=== PATIENT | female | born 1970 | race Caucasian/White ===

== ENCOUNTER 2019-08-07 09:24 | Emergency (ER) | payer BC, MEDICAID ==
[2019-08-07] MEDS ORDERED: cefTRIAXone 1 GM Vial IM ONE (10:08)
--- NOTE | 2019-08-07 10:13 | EDM.PDOC ---
ED HPI GENERAL MEDICAL PROBLEM - General Chief Complaint: General Stated Complaint: shortness of breath and sore throat Time Seen by Provider: 08/07/19 09:30 Source of Information: Reports: Patient History Limitations: Reports: No Limitations - History of Present Illness INITIAL COMMENTS - FREE TEXT/NARRATIVE: Pt with SOB and sore throat Several days getting worse Onset: Gradual Duration: Day(s):, Getting Worse Location: Reports: Face, Chest Associated Symptoms: Reports: Cough throat Pain Score (Numeric/FACES): 8 - Related Data Allergies Allergy/AdvReac Type Severity Reaction Status Date / Time bee venom protein (honey bee) Allergy Anaphylactic Verified 08/07/19 09:30 Shock Home Meds: Home Meds Citalopram Hydrobromide [Celexa] 40 mg PO DAILY 08/07/19 [History] Cyclobenzaprine [Flexeril] 10 mg PO TID PRN 08/07/19 [History] Lisinopril [Zestril] 20 mg PO DAILY 08/07/19 [History] Metoprolol Succinate [Toprol Xl] 25 mg PO DAILY 08/07/19 [History] Multivitamin/Iron/Folic Acid [Centrum Adults Tablet] 1 tab PO DAILY 08/07/19 [ History] Omeprazole Magnesium [Prilosec Otc] 20 mg PO BIDAC 08/07/19 [History] amLODIPine Besylate [Norvasc] 10 mg PO DAILY 08/07/19 [History] traZODone HCl [Trazodone HCl] 50 mg PO BEDTIME 08/07/19 [History] Past Medical History Cardiovascular History: Reports: Hypertension [employer]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: Musculoskeletal History: Reports: Arthritis, Fracture, Other (See Below) Other Musculoskeletal History: RLL fx and shattered ankle, bone spurs Psychiatric History: Reports: Anxiety, Depression - Past Surgical History Female Surgical History: Reports: Section Musculoskeletal Surgical History: Reports: Other (See Below) Other Musculoskeletal Surgeries/Procedures:: vein surgery per pt report Social & Family History - Tobacco Use Smoking Status *Q: Never Smoker - Caffeine Use Caffeine Use: Reports: None - Recreational Drug Use Recreational Drug Use: No ED ROS GENERAL - Review of Systems Review Of Systems: See Below HEENT: Reports: Throat Pain Respiratory: Reports: Shortness of Breath, Cough Cardiovascular: Reports: No Symptoms GI/Abdominal: Reports: No Symptoms ED EXAM, GENERAL - Physical Exam Exam: See Below Exam Limited By: No Limitations Nose: Normal Inspection Throat/Mouth: Other (Erythema posteriorly) Neck: Supple Respiratory/Chest: Decreased Breath Sounds Cardiovascular: Regular Rate, Rhythm Course - Vital Signs Last Recorded V/S: Last Vital Signs Temp 98.9 F 08/07/19 09:25 Pulse 97 08/07/19 09:25 Resp 20 08/07/19 09:25 BP 128/82 08/07/19 09:25 Pulse Ox 100 08/07/19 09:25 - Orders/Labs/Meds Meds: Medications Discontinued Medications Generic Name Dose Route Start Last Admin Trade Name Freq PRN Reason Stop Dose Admin Ceftriaxone Sodium 1 gm 08/07/19 10:08 Rocephin IM 08/07/19 10:09 ONETIME ONE - Re-Assessments/Exams Free Text/Narrative Re-Assessment/Exam: 08/07/19 10:11 Pt given Rocephin 1 gm IM in ER and Rx Amoxicillin 500 mg TID for 10 days Departure - Departure Time of Disposition: 10:30 Disposition: Home, Self-Care 01 Clinical Impression: Strep pharyngitis - Discharge Information *PRESCRIPTION DRUG MONITORING PROGRAM REVIEWED*: Not Applicable *COPY OF PRESCRIPTION DRUG MONITORING REPORT IN PATIENT SANTIAGO: Not Applicable Instructions: Strep Throat Referrals: Rosa Elena Saldana NP [Primary Care Provider] - Forms: ED Department Discharge, ED Return to Work/School Form Sepsis Event Note - Evaluation Sepsis Screening Result: No Definite Risk - Focused Exam Vital Signs: Vital Signs Temp Pulse Resp BP Pulse Ox 08/07/19 09:25 98.9 F 97 20 128/82 100 Date Exam was Performed: 08/07/19 Time Exam was Performed: 10:09
== END 2019-08-07 10:33 | disposition home or self-care (01) ==
LOC: LL.ED 09:24
DX: J02.0 Streptococcal pharyngitis (principal); F32.9 Major depressive disorder, single episode, unspecified; I10 Essential (primary) hypertension; F41.9 Anxiety disorder, unspecified; Z91.030 Bee allergy status; Z79.899 Other long term (current) drug therapy
CPT/HCPCS: 87430; 87804; 96372; 99284; J0696; J2001